=== PATIENT | female | born 1980 | race Caucasian/White ===

== ENCOUNTER 2017-02-03 00:34 | Emergency (ER) | payer OTHER ==
[~2017-02-03] VITALS: Ht 177.8 cm; Wt 127.1 kg
[~2017-02-03 00:34] MED LIST: NO CURRENT HOME MEDS; ORPH100T2 PO; TRAM50TA53 PO
--- OUTSIDE RECORDS SUMMARY | 2017-02-03 00:38 | XMS REPORT | Continuity of Care Document ---
Author Author [facility] Organization [facility] Address Unknown Phone Unavailable Allergies Active Description Code Type Severity Reaction Onset Reported/Identified Relationship to Patient Clinical Status Yes No Known Allergies No Known Allergies Drug Allergy Unknown N/A 05/25/2014 Medications Problems Date Dx Coded Attending Type Code Diagnosis Diagnosed By 05/25/2014 Kira Nazario MD 278.01 MORBID OBESITY 05/25/2014 Kira Nazario MD 649.11 OBESITY COMP PREG/CHILDBIRTH/PUERPERIUM, DELIVERED 05/25/2014 Kira Nazario MD 652.51 HIGH HEAD AT TERM-DELIV 05/25/2014 Kira Nazario MD 654.21 PREV DELIVRY W/ OR W/O MENT ANTEPART COND 05/25/2014 Kira Nazario MD 654.23 PREV DELIVERY, ANTEPARTUM COND OR COMPLIC 05/25/2014 Kira Nazario MD 663.31 CORD ENTANGLE NEC-DELIV 05/25/2014 Kira Nazario MD V27.0 DELIVER-SINGLE LIVEBORN 05/25/2014 Kira Nazario MD V85.41 BODY MASS INDEX 40.0-44.9, ADULT Procedures Code Description Performed By Performed On 74.1 LOW CERVICAL Liborio HERNANDEZ, Mahsa Moran 05/25/2014 Results Test Result Range CBC - 05/25/14 23:20 MEAN CELL HGB 28.1 pg 27.0-33.0 MEAN CELL HGB CONCENTRATION 32.1 g/dL 32.0-37.0 MEAN CELL VOLUME 87.6 fl 80.0-100.0 RED BLOOD CELL 4.27 m/cumm 4.00-6.00 RED CELL DISTRIBUTION WIDTH 13.9 % 11.0- 15.6 WHITE BLOOD CELL 9.8 k/cumm 5.0-10.0 HEMOGLOBIN 12.0 gm/dL 12.0-16.0 HEMATOCRIT 37.4 % 37.0-47.0 PLATELET COUNT 228 k/cumm 150-400 CORD VENOUS BLOOD GAS - 05/26/14 19:24 VENOUS CORD BLOOD BASE EXCESS -2.3 meq/L -5.8-0.7 COMMENT VENOUS VENOUS CORD BLOOD HCO3 24.3 meq/L 17.4- 25.4 VENOUS CORD BLOOD PCO2 48 mm Hg 28-57 VENOUS CORD BLOOD PH 7.32 7.23-7.46 VENOUS CORD BLOOD PO2 31 mm Hg 15-42 VENOUS CORD BLOOD O2 SAT 67 % 14-75 CORD ARTERIAL BLOOD GAS - 05/26/14 19:24 ARTERIAL CORD BLD BASE EXCESS -5.0 meq/L -7.6-1.3 COMMENT ARTERIAL ARTERIAL CORD BICARBONATE 27.1 meq/L 16.0 -27.1 ARTERIAL CORD BLOOD PCO2 88 mm Hg 32-69 ARTERIAL CORD BLOOD PH 7.11 7.14-7.40 ARTERIAL CORD BLOOD PO2 16.6 mm Hg 8-33 ARTERIAL CORD BLOOD O2 SAT < 15 % 5-59 URINALYSIS, ROUTINE - 05/26/14 22:23 UA LEUKOCYTE ESTERASE DIPSTICK NEGATIVE NEGATIVE UA NITRITE DIPSTICK NEGATIVE NEGATIVE UA PROTEIN DIPSTICK NEGATIVE NEGATIVE UA GLUCOSE DIPSTICK NEGATIVE NEGATIVE UA KETONE DIPSTICK 3+ NEGATIVE UA UROBILINOGEN DIPSTICK NORMAL NORMAL UA BILIRUBIN DIPSTICK NEGATIVE NEGATIVE UA BLOOD DIPSTICK 4+ NEGATIVE UA SPECIFIC GRAVITY 1.025 1.015-1.025 UR PH 7.0 5.0-7.0 UA MICROSCOPIC - 05/26/14 22:23 UA EPITHELIAL CELLS 1+ epi/hpf 0 - 1+ UA MUCUS 1+ NEG TO 1+ UA RBC >100 rbc/hpf 0 - 3 UA VOLUME FOR EXAM 12.0 mL (12mL STD) UA WBC 2-5 wbc/hpf 0 - 5 HEMOGLOBIN - 05/27/14 01:57 MEAN CELL VOLUME 86.8 fl 80.0-100.0 HEMOGLOBIN 9.2 gm/dL 12.0-16.0 HGB HCT - 05/27/14 05:00 MEAN CELL VOLUME 86.6 fl 80.0-100.0 HEMOGLOBIN 8.8 gm/dL 12.0-16.0 HEMATOCRIT 27.1 % 37.0-47.0 Encounters ACCT No. Visit Date/Time Discharge Status Pt. Type Provider Facility Loc./Unit Complaint [id number] 05/25/2014 22:06:00 2013 14:35:00 DIS Inpatient Mansi HERNANDEZ, [facility]
[2017-02-03 00:55] VITALS: Ht 177.8 cm; Wt 127.1 kg
--- OUTSIDE RECORDS SUMMARY | 2017-02-03 01:03 | XMS REPORT | Continuity of Care Document ---
Author Author [facility] Organization [facility] Address Unknown Phone Unavailable Allergies Active Description [...] Status Pt. Type Provider Facility Loc./Unit Complaint [id number] 05/25/2014 22:06:00 2013 14:35:00 DIS Inpatient Mansi HERNANDEZ, [facility]
--- NOTE | 2017-02-03 01:04 | ERPDOC ---
Departure Disposition Decision Date: February 03, 2017 Disposition Decision Time: 01:03 Disposition: 01 DISCHARGED HOME, SELF-CARE Impression Impression Impression: Primary Impression: Exposure to blood or body fluid Condition: Stable Seen By: Physician only Referrals: QUOC PEDROZA MD (Family) Patient Instructions: Body Substance Exposure (ED) Problems/Meds/Labs Reviewed?: Yes Medications reviewed and manag: Yes Additional Instructions: You will receive notification of any occasion recommendations or further testing needed after source patient and your lab results come back. Follow up care ordered?: Yes Mental Status: Alert, Oriented HPI General Chief Complaint: Body Fluid Exposure/Needlestic Stated Complaint: BLOOD ON OPEN CUT ON FINGER Time Seen by Provider: 00:46 Source: patient Exam Limitations: no limitations HPI Wound Recheck Initial Comments Patient is a nurse at [employer], had a blood exposure with some fluid from a LONNIE drain splashed onto her left hand, where she has a superficial laceration to the index finger 4 days old. No known infectious diseases and the patient on the floor, or Shilpi. Wound was washed immediately. Symptoms since injury: denies symptoms Allergies: Coded Allergies: No Known Allergies (Unverified , 11/20/15) Past History Past Medical History Pt denies signifigant PMH Vaccines Other Vaccines: YES: Hepatitis B Review of Systems Constitutional Constitutional: DENIES: appetite decrease, appetite increase, chills, dizziness , fever, weakness ENMT Ears: DENIES: pain Hearing: DENIES: hearing loss, tinnitus Balance: DENIES: vertigo Mouth/Throat: DENIES: change in swallowing, change in voice, hoarsness, painful swallowing, sore throat Cardiovascular Cardiac: DENIES: chest pain, dyspnea on exertion Rhythm/Rate: DENIES: irregular beat, palpitations, tachycardia Vascular: DENIES: pedal edema Pulmonary Respiratory: DENIES: cough, dyspnea, pleuritic chest pain GI Upper Abdomen: DENIES: dysphagia, heartburn/indigestion, nausea, pain, vomiting Lower Abdomen: DENIES: blood in stool, constipation, diarrhea, pain General: DENIES: burning, dysuria, frequency, pain, urgency Musculoskeletal General: DENIES: cramps, joint pain, joint swelling, pain, weakness Integumentary Skin: DENIES: rash, sores Neurological General: DENIES: headache, numbness, tingling, vertigo, weakness Psychiatric Psychiatric: DENIES: anxiety, depression, nervousness Exam General General Nourishment: well nourished, well developed, appears stated age, no acute distress General Body Habitus: well groomed Height (Feet): 5 Height (Inches): 10 Fastrak Wound Recheck Comments Patient has a superficial laceration to the left index finger, does not appear open, and appears to have a good fibrin/eschar cover. Neurologic RN Documented GCS Eye Opening: Verbal: Motor: Total: Progress Progress Progress Patient has a very low risk exposure, and no medications are indicated that this time. Lab testing is undertaken of both the patient and the source patient at this time. JASON SALEEM MD February 03, 2017 01:04
--- NOTE | 2017-02-03 01:25 | NUR ---
STATUS PT AWARE SHE NEEDS TO DO THE UDS. SHE WILL CONTACT LAB WHEN ITS TIME. PT AWARE THIS NEEDS TO BE DONE BEFORE SHE LEAVES WORK THIS AM
[2017-02-03 01:30] VITALS: BP 171/107; PULSE 93; RESP 18; TEMP 99.1; O2SAT 98
--- NOTE | 2017-02-03 01:30 | NUR ---
DEPART PT IS GIVEN DISMISSAL INSTRUCTIONS [facility] UNDERSTANDING. PT LEAVES AMBULATORY TO ED REGITRATION DESK.
== END 2017-02-03 01:30 | disposition home or self-care (01) ==
LOC: ED 00:34
DX: Z77.21 Contact with and (suspected) exposure to potentially hazardous body fluids (principal)